=== PATIENT | male | born 1935 | race Caucasian/White ===

== ENCOUNTER → 2016-10-10 | Outpatient (CLI) | payer OTHER, MEDICARE ==
[~2016-10-10] MED LIST: BIMA0.01 OPB; BRIM0.2S OPB; DMX250; LISI-461 PO; MULT-506 PO; MULT60CA PO; OFLO0.3S OP; PRED1SUS3; TAMS0.4C38 PO
[2016-10-10 13:07] LABS: BLOOD UREA NITROGEN 24 mg/dl (7-18); CALCIUM 9.5 mg/dl (8.5-10.1); CARBON DIOXIDE 30 mmol/L (21-32); CHLORIDE 105 mmol/L (98-107); GLUCOSE 102 mg/dl (70-99); POTASSIUM 4.6 mmol/L (3.5-5.1); SODIUM 139 mmol/L (136-145)
[2016-10-10 13:24] LABS: BUN/CREATININE RATIO 19.6 (10-20)
== END | disposition home or self-care (01) ==
LOC: C.LABBFT 10:16
PROVIDERS: ATTEND Urology
DX: I10 Essential (primary) hypertension (principal); N40.1 Benign prostatic hyperplasia with lower urinary tract symptoms

== ENCOUNTER → 2016-10-30 | Outpatient (CLI) | payer OTHER, MEDICARE ==
[2016-10-30 12:37] LABS: CHOLESTEROL/HDL RATIO 2.7
== END ==
LOC: C.LABBFT 07:52
PROVIDERS: ATTEND Family Medicine